=== PATIENT | female | born 1990 | race Caucasian/White ===

== ENCOUNTER 2016-11-23 18:16 | Emergency (ER) | payer MEDICAID ==
[~2016-11-23] VITALS: Ht 162.6 cm; Wt 64.6 kg
[~2016-11-23 18:16] MED LIST: HYDR1TAB12 PO; IBUP-1222 PO; NITR100C56 PO; PREN1TAB25 PO
[2016-11-23] MEDS ORDERED: AZITHROMYCIN 500 MG TABLET PO ONE (19:00)
[2016-11-23] MEDS ORDERED: CEFTRIAXONE 250 MG IM ONE (19:00)
[2016-11-23] MEDS ORDERED: CEFTRIAXONE 250 MG ONE (19:03)
[2016-11-23] MEDS ORDERED: AZITHROMYCIN 500 MG TABLET ONE (19:03)
[2016-11-23] MEDS ORDERED: LIDOCAINE 1%, 20ML ONE (19:03)
[2016-11-23 19:38] VITALS: BP 118/74
== END 2016-11-23 19:40 | disposition home or self-care (01) ==
LOC: ED 19:30
DX: O98.33 Other infections with a predominantly sexual mode of transmission complicating the puerperium (principal); O86.13 Vaginitis following delivery; L73.9 Follicular disorder, unspecified
CPT/HCPCS: 87491; 87591; 96372; 99284; J0696

== ENCOUNTER 2017-01-08 04:13 | Emergency (ER) | payer MEDICAID ==
[~2017-01-08] VITALS: Ht 162.6 cm; Wt 59.7 kg
[2017-01-08 04:15] VITALS: BP 121/81
== END 2017-01-08 05:09 | disposition home or self-care (01) ==
LOC: ED 04:48
DX: K08.89 Other specified disorders of teeth and supporting structures (principal)
CPT/HCPCS: 99283

== ENCOUNTER 2017-08-17 22:58 | Emergency (ER) | payer MEDICAID ==
[~2017-08-17] VITALS: Ht 162.6 cm; Wt 64.8 kg
[2017-08-17] MEDS ORDERED: LIDOCAINE-MPF 1%, 5ML INFIL ONE (23:30)
[2017-08-18 01:15] VITALS: BP 107/58
== END 2017-08-18 01:32 | disposition home or self-care (01) ==
LOC: ED 23:59
DX: N76.4 Abscess of vulva (principal)
CPT/HCPCS: 56405; 99283

== ENCOUNTER 2018-08-20 23:18 | Inpatient (IN) | payer MEDICAID ==
[~2018-08-20] VITALS: Ht 162.6 cm; Wt 62.0 kg
[~2018-08-20 23:18] MED LIST changes: -HYDR1TAB12 PO; +HYDR1TAB13 PO
--- NOTE | 2018-08-20 23:36 | NUR ---
ARACELIS STARK AT BEDSIDE EVALUATING PT
--- NOTE | 2018-08-20 23:50 | NUR ---
PT AMBULATORY TO RESTROOM TO OBTAIN URINE SAMPLE
[2018-08-20] MEDS ORDERED: ACETAMINOPHEN 325 MG TABLET ONE (23:54)
[2018-08-21] MEDS ORDERED: ACETAMINOPHEN 325 MG TABLET PO ONE
[2018-08-21] MEDS ORDERED: SODIUM CHLORIDE FLUSH 10ML SYR IVF ONE
[2018-08-21] MEDS ORDERED: SODIUM CHLORIDE 0.9% 1,000ML IVBOLUS ONE
[2018-08-21 00:12] LABS: BASOPHILS # (AUTO) 0.02 x10^3/uL (0-0.1); BASOPHILS % (AUTO) 0 % (0-1); EOSINOPHILS % (AUTO) 0 % (1-7); LYMPHOCYTES # (AUTO) 0.87 x10^3/uL (1-3.4); LYMPHOCYTES % (AUTO) 6 % (22-44); MD NO; MEAN CORPUSCULAR HEMOGLOBIN 29.3 pg (27.0-34.8); MEAN CORPUSCULAR HGB CONC 33.5 g/dL (32.4-35.8); MEAN CORPUSCULAR VOLUME 87.3 fL (80-100); MEAN PLATELET VOLUME 9.6 fL (7.4-10.4); MONOCYTES # (AUTO) 0.72 x10^3/uL (0.2-0.8); MONOCYTES % (AUTO) 5 % (2-9); NEUTROPHILS # (AUTO) 13.83 x10^3/uL (1.8-6.8); NEUTROPHILS % (AUTO) 90 % (42-75); PLATELET COUNT 232 x10^3/uL (130-400); RED BLOOD COUNT 4.67 x10^6/uL (3.82-5.3); RED CELL DISTRIBUTION WIDTH 15.9 % (9.6-15.2)
--- NOTE | 2018-08-21 00:17 | NUR ---
IV ESTABLISHED. DELAY DUE TO POOR IV ACCESS DUE TO PAST IV DRUG USE. 22 G ESTABLISHED IN RIGHT UPPER ARM. NS INFUSING. UA PROVIDED, MINIMAL AMOUNT, WALKED TO LAB
[2018-08-21 00:23] LABS: ALANINE AMINOTRANSFERASE 151 U/L (12-78); ALBUMIN 3.6 g/dL (3.4-5.0); ANION GAP 8 mmol/L (5-15); CALCIUM 8.5 mg/dL (8.5-10.1); CHLORIDE 108 mmol/L (98-107); CREATININE 0.78 mg/dL (0.55-1.02)
[2018-08-21 00:28] LABS: ALKALINE PHOSPHATASE 225 U/L (45-117); BILIRUBIN,TOTAL 0.9 mg/dL (0.2-1.0); TOTAL PROTEIN 7.4 g/dL (6.4-8.2)
[2018-08-21 00:29] LABS: CULTURE INDICATED? YES; MICROSCOPIC AUTO
--- NOTE | 2018-08-21 00:50 | NUR ---
Lab at bedside to draw blood cultures.
[2018-08-21] MEDS ORDERED: CEFTRIAXONE PMX 1GM/50ML 50 ML IV ONE (01:00)
[2018-08-21] MEDS ORDERED: CEFTRIAXONE PMX 1GM/50ML 50 ML ONE (01:06)
--- NOTE | 2018-08-21 01:17 | NUR ---
TASK RN: IV ABX started after blood cultures x 2 drawn.
--- NOTE | 2018-08-21 01:29 | NUR ---
REPORT TO LOYD TOLENTINO
[2018-08-21 01:57] VITALS: BP 94/64
[2018-08-21] MEDS ORDERED: CEFTRIAXONE PMX 2GM/50ML 50 ML IV SCH (02:00)
[2018-08-21] MEDS ORDERED: ONDANSETRON 2MG/ML, 2ML IVPush PRN (02:00)
[2018-08-21] MEDS: KETOROLAC 30 MG/1 ML IM SCH ×2 (02:43→08:00)
[2018-08-21] MEDS: SODIUM CHLORIDE 0.9% 1,000 ML IV SCH ×3 (03:21→15:12)
[2018-08-21 03:37] LABS: ALBUMIN 2.9 g/dL (3.4-5.0); BILIRUBIN, DIRECT 0.5 mg/dL (0.1-0.2)
[2018-08-21 03:39] LABS: BILIRUBIN,INDIRECT 0.8 mg/dL (0.0-2.0); BILIRUBIN,TOTAL 1.3 mg/dL (0.2-1.0)
[2018-08-21] MEDS: ACETAMINOPHEN 325 MG TABLET PO PRN ×3 (06:01→18:14)
[2018-08-21 07:55] VITALS: BP 91/63
[2018-08-21] MEDS: IBUPROFEN 800 MG TABLET PO PRN ×2 (11:45→22:08)
[2018-08-21 13:50] VITALS: BP 101/69
[2018-08-21 19:50] VITALS: BP 95/66
[2018-08-22 01:33] VITALS: BP 91/63
[2018-08-22 05:05] LABS: BASOPHILS # (AUTO) 0.03 x10^3/uL (0-0.1); BASOPHILS % (AUTO) 0 % (0-1); EOSINOPHILS # (AUTO) 0.09 x10^3/uL (0-0.4); EOSINOPHILS % (AUTO) 1 % (1-7); LYMPHOCYTES % (AUTO) 15 % (22-44); MD NO; MEAN CORPUSCULAR HEMOGLOBIN 29.5 pg (27.0-34.8); MEAN CORPUSCULAR HGB CONC 33.8 g/dL (32.4-35.8); MEAN CORPUSCULAR VOLUME 87.4 fL (80-100); MONOCYTES # (AUTO) 0.93 x10^3/uL (0.2-0.8); MONOCYTES % (AUTO) 9 % (2-9); NEUTROPHILS # (AUTO) 7.95 x10^3/uL (1.8-6.8); NEUTROPHILS % (AUTO) 75 % (42-75); PLATELET COUNT 163 x10^3/uL (130-400); RED CELL DISTRIBUTION WIDTH 15.8 % (9.6-15.2)
[2018-08-22 05:11] LABS: ANION GAP 5 mmol/L (5-15); CALCIUM 7.7 mg/dL (8.5-10.1); CHLORIDE 114 mmol/L (98-107); CREATININE 0.44 mg/dL (0.55-1.02)
[2018-08-22] MEDS: ACETAMINOPHEN 325 MG TABLET PO PRN (05:12)
[2018-08-22] MEDS ORDERED: ACETAMINOPHEN 325 MG TABLET PO PRN (07:30)
[2018-08-22 07:45] VITALS: BP 128/86
[2018-08-23] MEDS ORDERED: SODIUM CHLORIDE 0.9% 1,000 ML IV SCH (01:52)
== END 2018-08-22 10:45 | disposition left against medical advice (07) | DRG 872 ==
LOC: ED 08-21 00:35 → EDIP 08-21 00:51 → 3NW 08-21 01:42
PROVIDERS: ADMIT Family Medicine; ATTEND Family Medicine
DX: A41.9 Sepsis, unspecified organism (principal); N10 Acute pyelonephritis; D64.9 Anemia, unspecified; E86.0 Dehydration; E87.6 Hypokalemia; Z53.21 Procedure and treatment not carried out due to patient leaving prior to being seen by health care provider; Z88.8 Allergy status to other drugs, medicaments and biological substances
CPT/HCPCS: 36415; 80048; 80053; 80076; 81001; 83605; 84145; 84703; 85025; 87040; 87077; 87086; 87186; 96374; G0378; J0696; J2405; J7030